=== PATIENT | female | born 1970 | race Caucasian/White ===

== ENCOUNTER → 2016-10-21 | Outpatient (CLI) | payer OTHER | LOC: FIMAGING 09:04 | DX: Z12.31 Encounter for screening mammogram for malignant neoplasm of breast (principal) | CPT/HCPCS: G0202 ==

== ENCOUNTER → 2017-11-09 | Outpatient (CLI) | payer BC | LOC: BMCIMAGING 07:20 | PROVIDERS: ATTEND Obstetrics & Gynecology | DX: D25.9 Leiomyoma of uterus, unspecified (principal); N83.9 Noninflammatory disorder of ovary, fallopian tube and broad ligament, unspecified ==